=== PATIENT | female | born 1990 | race Asian ===

== ENCOUNTER → 2016-09-12 | Outpatient (CLI) | payer BC ==
--- NOTE | 2016-09-12 10:59 | REP ---
Clinical: Left lower quadrant pain. IUD position. Technique: Transabdominal pelvic ultrasound followed by transvaginal examination for better evaluation of the endometrium and adnexa with color Doppler evaluation of the ovaries. Findings: Bladder is unremarkable and measures 11.2 x 10.5 x 7.2 cm . Normal anteverted uterus measures 7.8 x 3.2 x 4.2 cm . The endometrial complex measures 4.5 mm thickness. No discrete uterine or endometrial abnormalities are appreciated. The IUD is identified in the lower uterine segment. Bilateral ovaries are normal in appearance and vascularity without evidence for torsion. Right ovary measures 3.3 x 2.6 x 1.8 cm with 2.0 cm dominant follicle ; R I = 0.55 . Left ovary measures 3.5 x 1.5 x 2.1 cm ; R I = 0.47 . No pelvic fluid or adnexal mass lesion . Impression: 1. Anteverted uterus with IUD in the lower uterine segment. 2. Normal bilateral ovaries with appropriate vascularity and no torsion.
== END ==
LOC: M WHC 08:33
PROVIDERS: ATTEND Nurse Practitioner Women's Health
DX: Z30.431 Encounter for routine checking of intrauterine contraceptive device (principal)

== ENCOUNTER → 2018-11-06 | Outpatient (CLI) | payer OTHER ==
--- NOTE | 2018-11-06 14:42 | REP ---
MRI left knee without contrast: History: Left knee pain. No comparison radiographs. Technique: Axial, coronal and sagittal imaging planes utilized. T1 and T2-weighted scans were obtained in the usual fashion with and without fat saturation. MRI findings: Cortical and medullary bone signal intensity are normal. There is no evidence of occult fracture. There is no evidence of Moreno's cyst or joint effusion. Patellar and quadriceps tendons are intact. Posterior cruciate ligament has has an intact appearance. The anterior cruciate ligament is quite thin and not visible on inversion recovery sequence. It appears intact on coronal proton density and T2-weighted scans however. A partial ACL tear cannot be excluded. There is no evidence of medial or lateral collateral ligament disruption. No medial or lateral meniscal tear is seen. No articular cartilaginous lesion is appreciated. Medial and lateral patellar retinacular structures appear intact. Impression: Question partial tear ACL. No other evidence of internal derangement seen. Electronically Signed by Vincenzo Arzate MD 11/06/2018 02:34 P
== END ==
LOC: M RAD 08:53
PROVIDERS: ATTEND Orthopaedic Surgery Sports Medicine
DX: M25.562 Pain in left knee (principal)

== ENCOUNTER → 2020-07-31 | Outpatient (REF) | payer OTHER | LOC: M LAB 22:00 | PROVIDERS: ATTEND Physician Assistant Medical | DX: Z11.52 Encounter for screening for COVID-19 (principal) ==

== ENCOUNTER → 2020-09-07 | Outpatient (REF) | payer OTHER | LOC: M LAB REF 16:30 | PROVIDERS: ATTEND Nurse Practitioner Adult Health | DX: Z11.4 Encounter for screening for human immunodeficiency virus [HIV] (principal) ==

== ENCOUNTER → 2020-09-21 | Outpatient (CLI) | payer OTHER ==
--- NOTE | 2020-09-21 17:04 | REP ---
INDICATION: RIGHT HAND PAIN. COMPARISON: None. TECHNIQUE: Three views of the right hand. FINDINGS: Overall mineralization pattern is normal. Joint spaces are preserved. No fracture or subluxation is seen. There is no evidence of arthropathy. IMPRESSION: Negative radiographs of the right hand. <Electronically signed by Kamran Arzate > 09/21/20 [id number]
== END ==
LOC: M SOG 08:24
PROVIDERS: ATTEND Orthopaedic Surgery Sports Medicine
DX: M65.4 Radial styloid tenosynovitis [de Quervain] (principal)

== ENCOUNTER → 2024-02-05 | Outpatient (CLI) | payer OTHER | LOC: M SOG 07:58 | PROVIDERS: ATTEND Physician Assistant | DX: M25.532 Pain in left wrist (principal) ==

== ENCOUNTER → 2024-03-25 | Outpatient (REF) | payer OTHER | LOC: M LAB REF 16:11 | PROVIDERS: ATTEND Nurse Practitioner Family | DX: N39.0 Urinary tract infection, site not specified (principal) ==